=== PATIENT | female | born 1965 | race Caucasian/White ===

== ENCOUNTER → 2016-09-14 | Outpatient (CLI) | payer OTHER ==
[~2016-09-14] MED LIST: AMOX875T PO; FLUC150T PO; MBXC PO; MULTCAP42 PO; OXY/15 PO; OXYC1TAB PO; OXYC1TAB3 PO
--- NOTE | 2016-09-14 10:37 | DIAGNOSTIC IMAGING REPORT ---
TWO VIEW CHEST CLINICAL HISTORY: Preoperative examination. FINDINGS: PA and lateral chest radiographs are compared to study dated 06/17/2016. The cardiomediastinal silhouette is unremarkable. The lungs and pleural spaces are clear. There is no pneumothorax. The bony thorax appears intact. IMPRESSION: No active disease in the chest. Electronically signed by: Jay Humphries M.D. 09/14/2016 10:36 AM Dictated Date/Time: 09/14/2016 10:35 AM
== END | disposition home or self-care (01) ==
LOC: C.CPL 10:15
PROVIDERS: ATTEND General Practice
DX: Z01.810 Encounter for preprocedural cardiovascular examination (principal)

== ENCOUNTER → 2016-10-08 | Outpatient (CLI) | payer OTHER ==
--- NOTE | 2016-10-08 12:33 | DIAGNOSTIC IMAGING REPORT ---
CERVICAL SPINE 2 OR 3 VIEWS CLINICAL HISTORY: Postoperative examination. COMPARISON STUDY: MRI the cervical spine dated 06/26/2015 FINDINGS: There are postsurgical changes of anterior discectomies and interbody fusions at the C3-4, C4-5, and C5-C6 levels. Interbody implant/spacers are present at these 3 levels. The C3 screws abut the C3-4 interbody implant/spacer. There is straightening of normal cervical lordosis. There is prevertebral soft tissue edema. IMPRESSION: Postsurgical changes as described above. Prevertebral soft tissue edema. Electronically signed by: Adiel Candelaria M.D. 10/08/2016 12:31 PM Dictated Date/Time: 10/08/2016 12:29 PM
== END | disposition home or self-care (01) ==
LOC: C.RAD 12:02
PROVIDERS: ATTEND Neurological Surgery
DX: Z48.89 Encounter for other specified surgical aftercare (principal)

== ENCOUNTER → 2016-11-05 | Outpatient (CLI) | payer OTHER ==
--- NOTE | 2016-11-05 09:04 | DIAGNOSTIC IMAGING REPORT ---
CERVICAL SPINE 2 OR 3 VIEWS CLINICAL HISTORY: POST OP COMPARISON STUDY: 10/08/2016 FINDINGS: There is decreased prevertebral soft tissue swelling. There are postsurgical changes of anterior discectomies and interbody fusions the C3-4, C4-5, and C5-6 levels. Interbody spacers/implants are again present at these 3 levels. There is an anterior metallic plate with screws at the C3 C4 C5 and C6 levels. IMPRESSION: Postsurgical changes as described above. Decreasing prevertebral soft tissue edema Electronically signed by: Adiel Candelaria M.D. 11/05/2016 9:02 AM Dictated Date/Time: 11/05/2016 9:01 AM
== END | disposition home or self-care (01) ==
LOC: C.RAD 08:21
PROVIDERS: ATTEND Neurological Surgery
DX: Z48.89 Encounter for other specified surgical aftercare (principal); R60.0 Localized edema

== ENCOUNTER → 2016-12-30 | Outpatient (CLI) | payer OTHER ==
[~2016-12-30] MED LIST changes: -MBXC PO
--- NOTE | 2016-12-30 14:39 | DIAGNOSTIC IMAGING REPORT ---
AP AND LATERAL VIEWS OF CERVICAL SPINE 2 VIEWS CLINICAL HISTORY: ENCOUNTER FOR OTHER SPECIFIED SURGICAL AFTERCARE,Z48.89 COMPARISON STUDY: 11/05/2016 FINDINGS: There are postsurgical changes of anterior discectomies with interbody bone plugs at the C3-4, C4-5, and C5-6 levels. There is anterior metallic plate with screws extending from C3 through the C6 level. No acute fractures or subluxations are visualized. There is borderline prevertebral soft tissue widening IMPRESSION: Postsurgical changes the C3-C6 levels. Electronically signed by: Adiel Candelaria M.D. 12/30/2016 2:37 PM Dictated Date/Time: 12/30/2016 2:36 PM
== END | disposition home or self-care (01) ==
LOC: C.RAD 13:47
PROVIDERS: ATTEND Neurological Surgery
DX: Z48.89 Encounter for other specified surgical aftercare (principal)

== ENCOUNTER → 2017-03-04 | Outpatient (CLI) | payer OTHER ==
[2017-03-04 12:40] LABS: BASO % 0.5 %; BASO ABS # 0.05 K/uL (0-0.2); COMPLETE YES; EOS % 1.6 %; HEMATOCRIT 42.9 % (37-47); IG% 0.3 %; LYMPH % 19.1 %; MEAN CORPUSCULAR HEMOGLOBIN 27.3 pg (25-34); MEAN CORPUSCULAR HGB CONC 32.9 g/dl (32-36); MEAN PLATELET VOLUME 10.7 fL (7.4-10.4); MONO % 4.7 %; NEUT % 73.8 %; PLATELET COUNT 385 K/uL (130-400); RED BLOOD COUNT 5.17 M/uL (4.2-5.4); WHITE BLOOD COUNT 9.97 K/uL (4.8-10.8)
[2017-03-04 12:51] LABS: ALT/SGPT 25 U/L (12-78); AST/SGOT 16 U/L (15-37); BLOOD UREA NITROGEN 8 mg/dl (7-18); BUN/CREATININE RATIO 13.1 (10-20); CALCIUM 9.5 mg/dl (8.5-10.1); CARBON DIOXIDE 30 mmol/L (21-32); CHLORIDE 107 mmol/L (98-107); CREATININE 0.62 mg/dl (0.60-1.20); GLUCOSE 161 mg/dl (70-99); MAGNESIUM 2.2 mg/dl (1.8-2.4); POTASSIUM 4.2 mmol/L (3.5-5.1); SODIUM 140 mmol/L (136-145)
[2017-03-04 13:03] LABS: ALB/GLOB RATIO 1.2 (0.9-2); ALKALINE PHOSPHATASE 104 U/L (45-117); THYROID STIMULATING HORMONE 0.505 uIu/ml (0.300-4.500)
== END | disposition home or self-care (01) ==
LOC: C.LABSPEC 12:23
PROVIDERS: ATTEND General Practice
DX: E78.5 Hyperlipidemia, unspecified (principal); D64.9 Anemia, unspecified; N28.9 Disorder of kidney and ureter, unspecified; E03.9 Hypothyroidism, unspecified; E53.8 Deficiency of other specified B group vitamins; E55.9 Vitamin D deficiency, unspecified; E83.42 Hypomagnesemia

== ENCOUNTER 2017-04-06 15:52 | Emergency (ER) | payer OTHER ==
[~2017-04-06] VITALS: Ht 175.3 cm; Wt 81.5 kg
[~2017-04-06 15:52] MED LIST changes: -AMOX875T PO; -FLUC150T PO; -OXYC1TAB3 PO
[2017-04-06 15:55] VITALS: TEMP 36.6; Ht 175.3 cm; Wt 81.5 kg
[2017-04-06] MEDS ORDERED: PIPERACILLIN/TAZOBACTAM 4.5 GM/100ML D5W IV STA (16:04)
--- NOTE | 2017-04-06 16:14 | EMERGENCY ROOM VISIT NOTE ---
History Report prepared by Kaitlin: Roger Perdomo Under the Supervision of: Dr. Jay Monk M.D. First contact with patient: 16:00 Chief Complaint: ALLERGIC REACTION Stated Complaint: FEET, ANKLES, WHOLE BODY SWELLED, RASH, HIVES History of Present Illness The patient is a 52 year old female who presents to the Emergency Room with complaints of a persistent allergic reaction that started earlier today. She says that she is having a typical allergic reaction to when the humidity outside goes over 40%. The patient states that she is swollen all over, but her right leg is worse than everywhere else. She adds that her right foot is peeling. She states that her knees are sore. The patient says that she does not take any medications for the allergic reactions, and it usually runs its course. She does note that Lasix does not reduce the swelling. The patient says that she has had ulcers in her mouth the past few days, but she had a recent viral illness. The patient says that she has had burning urination with decreased frequency. She denies any fevers today or any shortness of breath. The patient notes a history of cellulitis, and she had a heart murmur when she was . The patient says that she has no history of blood clots, and she is not on a blood thinner. The patient states that she has not been on antibiotics recently. She adds that she had stabbing left lower back pain yesterday. Source of History: patient Onset: Earlier today Position: other (global - allergic reaction) Quality: other (swelling everywhere, worse on right leg) Timing: other (persistent) Associated Symptoms: + SOB, + urinary symptoms (burning with decreased frequency) Note: Associated symptoms: Sore knees. Right foot peeling. Review of Systems See HPI for pertinent positives & negatives. A total of 10 systems reviewed and were otherwise negative. Past Medical & Surgical Medical Problems: (1) Chronic back pain (2) Migraines (3) Right hand weakness (4) Scoliosis Family History Cancer FH: HTN (hypertension) Heart disease Lung disease Stroke Social History Smoking Status: Current Every Day Smoker Alcohol Use: occasionally Drug Use: none Marital Status: single Occupation Status: disabled Current/Historical Medications Scheduled Amoxicillin & Pot Clavulanate (Augmentin 875-125 mg), 875 MG PO BID Fluconazole (Diflucan), 150 MG PO DIRECTED Oxycodone Ir (Roxicodone Ir), 5 MG PO Q8 Scheduled PRN Oxycodone Ir (Roxicodone Ir), 30 MG PO Q6H PRN for Breakthough Pain Allergies Coded Allergies: No Known Allergies (Verified , 06/17/16) Physical Exam Vital Signs Date Time Temp Pulse Resp B/P (MAP) Pulse Ox O2 Delivery O2 Flow Rate FiO2 04/06/17 18:54 63 18 121/77 94 04/06/17 16:50 94 Room Air 04/06/17 15:55 36.6 96 18 113/69 95 Room Air Physical Exam GENERAL: Patient is in no acute distress. HEENT: No acute trauma, normocephalic atraumatic, mucous membranes moist, no nasal congestion, no scleral icterus. No throat erythema or obvious mouth ulcers. NECK: No stridor, no adenopathy, no meningismus, trachea is midline. LUNGS: Clear to auscultation bilaterally, no wheeze, no rhonchi, breath sounds equal. HEART: 2/6 systolic murmur with a regular rate and rhythm. ABDOMEN: Soft, nontender, bowel sounds positive, no hernias, no peritonitis. EXTREMITIES: Edema to both lower extremities, worse on right side. There is right foot and medial leg erythema with warmth consistent with cellulitis. No drainage. NEUROLOGIC: Oriented x 3, no acute motor or sensory deficits, no focal weakness. SKIN: No rash, no jaundice, no diaphoresis. Medical Decision & Procedures ER Provider Diagnostic Interpretation: Radiology results as stated below per my review and radiologist interpretation: ULTRASOUND VENOUS DOPPLER LWR EXT BILA CLINICAL HISTORY: Leg swelling COMPARISON STUDY: No previous studies for comparison. FINDINGS: Real-time and color flow Doppler imaging were performed. Flow was seen within the femoral, popliteal and calf veins with no intraluminal thrombus demonstrated. The saphenous vein is patent. There are mildly prominent bilateral inguinal lymph nodes, likely reactive. IMPRESSION: No evidence of lower extremity DVT. Electronically signed by: Adiel Candelaria M.D. 04/06/2017 5:46 PM Dictated Date/Time: 04/06/2017 5:46 PM CHEST ONE VIEW PORTABLE CLINICAL HISTORY: Altered mental status. Weakness. COMPARISON STUDY: 09/06/2016 FINDINGS: The cardiac and mediastinal contours are normal. There is no evidence of focal pulmonary consolidation. There is no evidence of failure. No pleural effusions are visualized.[ IMPRESSION: No active disease in the chest. Electronically signed by: Adiel Candelaria M.D. 04/06/2017 5:09 PM Dictated Date/Time: 04/06/2017 5:09 PM Laboratory Results 04/06/17 16:36 Red Blood Count 4.92, Mean Corpuscular Volume 84.8, Mean Corpuscular Hemoglobin 26.6, Mean Corpuscular Hemoglobin Concent 31.4, Mean Platelet Volume 9.8, Neutrophils (%) (Auto) 56.0, Lymphocytes (%) (Auto) 29.9, Monocytes (%) (Auto) 8.4, Eosinophils (%) (Auto) 5.2, Basophils (%) (Auto) 0.4, Neutrophils # (Auto) 5.29, Lymphocytes # (Auto) 2.82, Monocytes # (Auto) 0.79, Eosinophils # (Auto) 0.49, Basophils # (Auto) 0.04 04/06/17 16:36 Test 04/06/17 16:36 White Blood Count 9.44 K/uL (4.8-10.8) Red Blood Count 4.92 M/uL (4.2-5.4) Hemoglobin 13.1 g/dL (12.0-16.0) Hematocrit 41.7 % (37-47) Mean Corpuscular Volume 84.8 fL (80-100) Mean Corpuscular Hemoglobin 26.6 pg (25-34) Mean Corpuscular Hemoglobin Concent 31.4 g/dl (32-36) Platelet Count 350 K/uL (130-400) Mean Platelet Volume 9.8 fL (7.4-10.4) Neutrophils (%) (Auto) 56.0 % Lymphocytes (%) (Auto) 29.9 % Monocytes (%) (Auto) 8.4 % Eosinophils (%) (Auto) 5.2 % Basophils (%) (Auto) 0.4 % Neutrophils # (Auto) 5.29 K/uL (1.4-6.5) Lymphocytes # (Auto) 2.82 K/uL (1.2-3.4) Monocytes # (Auto) 0.79 K/uL (0.11-0.59) Eosinophils # (Auto) 0.49 K/uL (0-0.5) Basophils # (Auto) 0.04 K/uL (0-0.2) RDW Standard Deviation 47.9 fL (36.4-46.3) RDW Coefficient of Variation 15.7 % (11.5-14.5) Immature Granulocyte % (Auto) 0.1 % Immature Granulocyte # (Auto) 0.01 K/uL (0.00-0.02) Prothrombin Time 10.2 SECONDS (9.0-12.0) Prothromb Time International Ratio 1.0 (0.9-1.1) Activated Partial Thromboplast Time 28.5 SECONDS (21.0-31.0) Partial Thromboplastin Ratio 1.1 Anion Gap 5.0 mmol/L (3-11) Est Creatinine Clear Calc Drug Dose 81.6 ml/min Estimated GFR () 84.0 Estimated GFR (Non- 72.5 BUN/Creatinine Ratio 11.6 (10-20) Calcium Level 9.9 mg/dl (8.5-10.1) Total Bilirubin 0.3 mg/dl (0.2-1) Aspartate Amino Transf (AST/SGOT) 23 U/L (15-37) Alanine Aminotransferase (ALT/SGPT) 32 U/L (12-78) Alkaline Phosphatase 92 U/L (45-117) Troponin I < 0.015 ng/ml (0-0.045) Total Protein 6.7 gm/dl (6.4-8.2) Albumin 3.5 gm/dl (3.4-5.0) Globulin 3.2 gm/dl (2.5-4.0) Albumin/Globulin Ratio 1.1 (0.9-2) Thyroid Stimulating Hormone (TSH) 0.717 uIu/ml (0.300-4.500) Laboratory results reviewed by me. Medications Administered Medications (Trade) Dose Ordered Sig/Billy Route Start Time Stop Time Status Last Admin Dose Admin Piperacillin Sod/ Tazobactam Sod (Zosyn Iv) 4.5 gm NOW STAT IV 04/06/17 16:04 04/06/17 16:09 DC 04/06/17 16:47 4.5 GM ECG Indication: SOB/dyspnea Rate (beats per minute): 60 Rhythm: normal sinus Findings: no ectopy, other (nonspecific ST change) Change: no significant change (compared to 09/14/16) ED Course 160: The patient was evaluated in room A4B. A complete history and physical exam was performed. 160: Ordered Zosyn IV 4.5 gm IV. 1812: Reevaluated the patient and she is resting comfortably. Discussed results and discharge instructions: she verbalized understanding and agreement. The patient is ready for discharge. Medical Decision Differential diagnosis includes but is not limited to DVT, cellulitis, venous insufficiency, CHF, electrolyte imbalance, anemia, UTI, thyroid disorder. There is no leukocytosis or concerning anemia. No significant electrolyte abnormality, kidney failure or hepatitis. The patient appears to be in a euthyroid state. Bilateral lower extremity ultrasound does not show DVT. Chest x-ray does not show CHF or pneumonia. EKG shows a sinus rhythm, no acute ischemia. Cardiac enzyme testing 1 is not consistent with acute cardiac injury. Blood cultures are pending. On exam, the patient was not febrile or toxic. She appeared to have a right lower extremity cellulitis. She was given IV Zosyn. She is stable and is being discharged on Augmentin twice a day for 10 days. Elevation of the leg was suggested. If worsening, she can return for reassessment. She will follow with her doctor in a few days. Medication Reconcilliation Current Medication List: was personally reviewed by me Blood Pressure Screening Patient's blood pressure: Normal blood pressure Impression Primary Impression: Cellulitis of right leg Additional Impression: Pedal edema Scribe Attestation The scribe's documentation has been prepared under my direction and personally reviewed by me in its entirety. I confirm that the note above accurately reflects all work, treatment, procedures, and medical decision making performed by me. Departure Information Dispostion Home / Self-Care Prescriptions Fluconazole (DIFLUCAN) 150 Mg Tab 150 MG PO DIRECTED, #2 TAB Prov: Jay Monk M.D. 04/06/17 Amoxicillin & Pot Clavulanate (Augmentin 875-125 mg) 1 Tab Tab 875 MG PO BID for 10 Days, #20 TAB Prov: Jay Monk M.D. 04/06/17 Referrals Carie Keane D.O. (PCP) Patient Instructions My [facility] Additional Instructions try to keep the legs elevated augmentin 2x per day for 10 days see nettie mosquera this week or early next for a recheck return for worsening symptoms or if not improving lab testing today was all ok Problem Qualifiers
[2017-04-06] MEDS ORDERED: OXYC1TAB3 PO (16:18)
[2017-04-06 16:50] VITALS: O2SAT 94
[2017-04-06 17:02] LABS: BASO % 0.4 %; BASO ABS # 0.04 K/uL (0-0.2); COMPLETE YES; EOS % 5.2 %; HEMATOCRIT 41.7 % (37-47); IG% 0.1 %; LYMPH % 29.9 %; LYMPH ABS # 2.82 K/uL (1.2-3.4); MEAN CELL VOLUME 84.8 fL (80-100); MEAN CORPUSCULAR HEMOGLOBIN 26.6 pg (25-34); MEAN CORPUSCULAR HGB CONC 31.4 g/dl (32-36); MEAN PLATELET VOLUME 9.8 fL (7.4-10.4); MONO % 8.4 %; PLATELET COUNT 350 K/uL (130-400); RED BLOOD COUNT 4.92 M/uL (4.2-5.4); WHITE BLOOD COUNT 9.44 K/uL (4.8-10.8)
--- NOTE | 2017-04-06 17:10 | DIAGNOSTIC IMAGING REPORT ---
CHEST ONE VIEW PORTABLE CLINICAL HISTORY: Altered mental status. Weakness. COMPARISON STUDY: 09/06/2016 FINDINGS: The cardiac and mediastinal contours are normal. There is no evidence of focal pulmonary consolidation. There is no evidence of failure. No pleural effusions are visualized.[ IMPRESSION: No active disease in the chest. Electronically signed by: Adiel Candelaria M.D. 04/06/2017 5:09 PM Dictated Date/Time: 04/06/2017 5:09 PM
[2017-04-06 17:20] LABS: ALT/SGPT 32 U/L (12-78); BLOOD UREA NITROGEN 10 mg/dl (7-18); BUN/CREATININE RATIO 11.6 (10-20); CALCIUM 9.9 mg/dl (8.5-10.1); CARBON DIOXIDE 30 mmol/L (21-32); CHLORIDE 107 mmol/L (98-107); GLUCOSE 116 mg/dl (70-99); POTASSIUM 4.1 mmol/L (3.5-5.1); SODIUM 142 mmol/L (136-145)
[2017-04-06 17:28] LABS: PARTIAL THROMBOPLASTIN RATIO 1.1; PROTHROMBIN TIME (PATIENT) 10.2 SECONDS (9.0-12.0)
[2017-04-06 17:30] LABS: ALB/GLOB RATIO 1.1 (0.9-2); ALKALINE PHOSPHATASE 92 U/L (45-117); AST/SGOT 23 U/L (15-37); THYROID STIMULATING HORMONE 0.717 uIu/ml (0.300-4.500)
--- NOTE | 2017-04-06 17:48 | DIAGNOSTIC IMAGING REPORT ---
ULTRASOUND VENOUS DOPPLER LWR EXT BILA CLINICAL HISTORY: Leg swelling COMPARISON STUDY: No previous studies for comparison. FINDINGS: Real-time and color flow Doppler imaging were performed. Flow was seen within the femoral, popliteal and calf veins with no intraluminal thrombus demonstrated. The saphenous vein is patent. There are mildly prominent bilateral inguinal lymph nodes, likely reactive. IMPRESSION: No evidence of lower extremity DVT. Electronically signed by: Adiel Candelaria M.D. 04/06/2017 5:46 PM Dictated Date/Time: 04/06/2017 5:46 PM
[2017-04-06] MEDS ORDERED: AMOX875T PO (18:17)
[2017-04-06] MEDS ORDERED: FLUC150T PO (18:19)
[2017-04-06 18:54] VITALS: BP 121/77; PULSE 63; O2SAT 94
== END 2017-04-06 18:54 | disposition home or self-care (01) ==
LOC: C.EDB 15:53 → C.EDA 18:54
DX: L03.115 Cellulitis of right lower limb (principal); R60.0 Localized edema; M54.9 Dorsalgia, unspecified; G89.29 Other chronic pain; F17.200 Nicotine dependence, unspecified, uncomplicated; M41.9 Scoliosis, unspecified; M06.332 Rheumatoid nodule, left wrist; Z82.49 Family history of ischemic heart disease and other diseases of the circulatory system; Z82.3 Family history of stroke; Z48.89 Encounter for other specified surgical aftercare

== ENCOUNTER → 2017-04-06 | Outpatient (CLI) | payer OTHER ==
--- NOTE | 2017-04-06 16:05 | DIAGNOSTIC IMAGING REPORT ---
CERVICAL SPINE 2 OR 3 VIEWS CLINICAL HISTORY: Status post cervical spine surgery. COMPARISON STUDY: Cervical spine radiographs December 30, 2013. FINDINGS: Note is again made of postoperative findings consistent with C3-C4 and C4-C5 and C5-C6 discectomies with interbody bone plug placement. There are 2 screws within the C3, C4, C5 and C6 vertebral bodies with anterior plate. Hardware is intact. Postoperative appearance is unchanged. No fracture is identified. Slight reversal of the normal cervical lordosis is noted. IMPRESSION: 1. Stable postoperative findings consistent with C3-C6 anterior discectomy and fusion. 2. No cervical spine fracture. Electronically signed by: Al Murray M.D. 04/06/2017 4:04 PM Dictated Date/Time: 04/06/2017 3:04 PM
== END | disposition home or self-care (01) ==
LOC: C.RAD 14:02
PROVIDERS: ATTEND Neurological Surgery
DX: Z48.89 Encounter for other specified surgical aftercare (principal)

== ENCOUNTER → 2017-04-06 | Outpatient (CLI) | payer OTHER ==
--- NOTE | 2017-04-06 15:06 | DIAGNOSTIC IMAGING REPORT ---
LEFT WRIST MIN 3 VIEWS ROUTINE CLINICAL HISTORY: MEDICAL NODULE COMPARISON: None. DISCUSSION: The bones and joint spaces appear intact. There is no evidence of fracture, dislocation or bony disease. There is no evidence for soft tissue swelling. IMPRESSION: Negative study. The above report was generated using voice recognition software. It may contain grammatical, syntax or spelling errors. Electronically signed by: Josh Gallego M.D. 04/06/2017 3:05 PM Dictated Date/Time: 04/06/2017 3:05 PM
== END | disposition home or self-care (01) ==
LOC: C.RAD 13:58
PROVIDERS: ATTEND General Practice
DX: M06.332 Rheumatoid nodule, left wrist (principal)

== ENCOUNTER 2017-05-30 03:07 | Emergency (ER) | payer OTHER ==
[~2017-05-30] VITALS: Ht 175.3 cm; Wt 83.4 kg
[~2017-05-30 03:07] MED LIST changes: -MULTCAP42 PO; -OXY/15 PO; +OXYC1TAB3 PO
[2017-05-30 03:09] VITALS: TEMP 36.6; Ht 175.3 cm; Wt 83.4 kg
[2017-05-30 04:53] VITALS: BP 136/77; PULSE 83; O2SAT 95
--- NOTE | 2017-05-30 07:24 | DIAGNOSTIC IMAGING REPORT ---
L WRIST MIN 3 VIEWS ROUTINE CLINICAL HISTORY: left wrist pain COMPARISON: 04/06/2017 DISCUSSION: No acute fractures or dislocations are visualized. Mild degenerative changes are evident. IMPRESSION: Mild degenerative change. No fractures are visualized. Electronically signed by: Adiel Candelaria M.D. 05/30/2017 7:22 AM Dictated Date/Time: 05/30/2017 7:21 AM
--- NOTE | 2017-05-31 00:23 | EMERGENCY ROOM VISIT NOTE ---
ED Visit Note First contact with patient: 03:15 CHIEF COMPLAINT: Wrist injury HISTORY OF PRESENT ILLNESS: This 52-year-old female patient presents to the emergency department complaining of pain in the left wrist for the past 3 or 4 weeks. She does not have distinct injury or trauma. She does have an orthopedist in [place] that she follows with, but has not seen them for this. The patient is able to move their wrist. The patient states the pain is dull and 4/10. No laceration, no weakness. No numbness or tingling. The patient denies any other injury. The patient is able to move their fingers and elbow without difficulty. The patient has not had a previous fracture to this wrist. The patient has taken her chronic oxycodone for the pain. REVIEW OF SYSTEMS: A 6 system review of systems was performed with positives and pertinent negatives in the HPI. ALLERGIES: No allergies MEDICATIONS: See EMR PMH: See EMR SOCIAL HISTORY: Lives locally PHYSICAL EXAM: Vital Signs: Reviewed Nurse's notes, vital signs stable. GENERAL : White female, in no acute distress, but appears to be in pain, well-developed , well-neurished. NEURO: Alert and oriented to person place and time. Normal sensation to light and sharp touch. MUSCULOSKELETAL: There is not deformity of the left wrist. There is tenderness and edema over distal radius. There is no snuff box tenderness. Range of motion is not limited. There is no tenderness of the elbow, hand or fingers. Associate Director Financial Aid strength 5/5. Radial pulse 2+. SKIN: Normal and intact. The hand is warm and well perfused with capillary refill less than 2 seconds. L WRIST MIN 3 VIEWS ROUTINE CLINICAL HISTORY: left wrist pain COMPARISON: 04/06/2017 DISCUSSION: No acute fractures or dislocations are visualized. Mild degenerative changes are evident. IMPRESSION: Mild degenerative change. No fractures are visualized. EMERGENCY DEPARTMENT COURSE: Physical exam and history were performed. Nursing notes and EMR were reviewed. The patient has left wrist pain for the past several weeks. She does not recall distinct injury or trauma. There is some tenderness over the distal radius and x-ray was obtained. X-ray does not show acute fracture or dislocation. Patient was placed in a wrist splint. She was given information for orthopedics. She evidently takes chronic oxycodone and may continue this for pain. She was otherwise invited back to the ER with any new, worsening, or concerning symptoms. Problem List Medical Problems: (1) Chronic back pain Status: Chronic (2) Migraines Status: Chronic (3) Right hand weakness Status: Resolved (4) Scoliosis Status: Chronic Current/Historical Medications Scheduled PRN Oxycodone Ir (Roxicodone Ir), 30 MG PO Q6H PRN for Breakthough Pain Oxycodone Ir (Roxicodone Ir), 5 MG PO Q8 PRN for Pain Allergies Coded Allergies: No Known Allergies (Verified , 05/30/17) Vital Signs Date Time Temp Pulse Resp B/P (MAP) Pulse Ox O2 Delivery O2 Flow Rate FiO2 05/30/17 04:53 83 18 136/77 95 05/30/17 03:09 36.6 82 20 126/80 97 Room Air Departure Information Impression Primary Impression: Wrist pain, left Dispostion Home / Self-Care Condition GOOD Referrals Carie Keane D.O. (PCP) Pancho Rasmussen D.O. Forms HOME CARE DOCUMENTATION FORM, IMPORTANT VISIT INFORMATION Patient Instructions My [facility] Additional Instructions You were seen and evaluated today on an emergency basis only. This is not a substitute for, or an effort to provide, complete comprehensive medical care. It is not possible to recognize and treat all injuries or illnesses in a single emergency department visit. For this reason it is recommended that you followup with Orthopedics, Dr Rasmussen's office, with a ongoing or persistent symptoms. Wear your brace for comfort. You are welcome to return to the emergency department anytime with new, worsening, or concerning symptoms.
== END 2017-05-30 04:54 | disposition home or self-care (01) ==
LOC: C.EDB 03:08
DX: M25.532 Pain in left wrist (principal); M54.9 Dorsalgia, unspecified; G89.29 Other chronic pain

== ENCOUNTER 2018-03-06 13:56 | Emergency (ER) | payer OTHER ==
[~2018-03-06] VITALS: Ht 175.3 cm; Wt 84.3 kg
[~2018-03-06 13:56] MED LIST changes: +OXYC-90 PO; -OXYC1TAB3 PO
[2018-03-06 14:05] VITALS: TEMP 36.7; Ht 175.3 cm; Wt 84.3 kg
--- NOTE | 2018-03-06 14:40 | EMERGENCY ROOM VISIT NOTE ---
History First contact with patient: 14:15 Chief Complaint: THROAT PAIN/INJURY Stated Complaint: THRUSH IN MOUTH AND LOOKS LIKE STREP THROAT,RASH History of Present Illness The patient is a 52 year old female who presents to the Emergency Room with complaints of 8/10 sore throat. The patient also notes the following associated symptoms, rash over the extremities and trunk, fevers, chills, headache, diaphoresis, lymphadenopathy, difficulty urinating, arthralgias and general malaise . This started about a month ago for the throat and one day for the rash and is worsening. The patient has tried nystatin from her PCP for relieving factors. The nystatin has not helped. She has chronic neck and back pain. Despite using her prescribed oxy 30mg she still notes the pain. No sick contacts or exposure. Pt denies LOC,visual changes, new neck pain, chest pain, breathing difficulties, nausea, vomiting, abdominal pain, new back pain, melena , hematochezia, numbness, weakness, or other complaints. Review of Systems See HPI for pertinent positives and negatives. A total of ten systems were reviewed and were otherwise negative. Past Medical/Surgical History Medical Problems: (1) Carpal tunnel syndrome (2) Chronic back pain (3) Migraines (4) Right hand weakness (5) Scoliosis (6) Spinal stenosis in cervical region Surgical Problems: (1) S/P section Family History Cancer FH: HTN (hypertension) Heart disease Lung disease Stroke Social History Smoking Status: Current Every Day Smoker Alcohol Use: occasionally Drug Use: none Marital Status: single Occupation Status: disabled Current/Historical Medications Scheduled Cephalexin Monohydrate (Keflex), 500 MG PO QID Scheduled PRN Oxycodone Ir (Roxicodone Ir), 30 MG PO Q6H PRN for Pain Physical Exam Vital Signs Date Time Temp Pulse Resp B/P (MAP) Pulse Ox O2 Delivery O2 Flow Rate FiO2 03/06/18 18:03 71 16 151/103 97 03/06/18 16:39 73 16 147/86 99 Room Air 03/06/18 15:35 85 18 145/79 96 Room Air 03/06/18 14:16 Room Air 03/06/18 14:05 36.7 88 18 96 Room Air Physical Exam GENERAL: Awake, alert, uncomfortable appearing, in no distress HENT: Normocephalic, atraumatic. Oropharynx revealed minimal erythema but no hypertrophy, uvula displacement, ulcerations or other abnormalities. EYES: Normal conjunctiva. Sclera non-icteric. NECK: Supple. No nuchal rigidity. FROM. No masses. No adenopathy RESPIRATORY: Clear to auscultation. No wheezes. No rales. Normal respiratory effort. CARDIAC: Normal rate. Normal rhythm. No murmurs. No rubs. Extremities warm and well perfused. Pulses equal. No JVD. GI: Soft, non-distended. No tenderness to palpation. No rebound or guarding. No masses. RECTAL: Deferred. MUSCULOSKELETAL: Atraumatic. Chest examination reveals no tenderness. The back is symmetrical on inspection without obvious abnormality. There is no CVA tenderness to palpation. No joint edema. LOWER EXTREMITIES: Calves are equal size bilaterally and non-tender. No edema. No discoloration. NEURO: Normal sensorium. No sensory or motor deficits noted. SKIN: Petechiae noted on the right hand (pt states just noticed since having BP taken and cuff really squeezed tight). Scattered secondary excoriations on the lower legs. No other rash or jaundice noted. Medical Decision & Procedures Laboratory Results 03/06/18 14:50 Red Blood Count 4.77, Mean Corpuscular Volume 88.5, Mean Corpuscular Hemoglobin 29.8, Mean Corpuscular Hemoglobin Concent 33.6, Mean Platelet Volume 9.7, Neutrophils (%) (Auto) 57.3, Lymphocytes (%) (Auto) 23.4, Monocytes (%) (Auto) 8.9, Eosinophils (%) (Auto) 9.4, Basophils (%) (Auto) 0.7, Neutrophils # (Auto) 5.84, Lymphocytes # (Auto) 2.39, Monocytes # (Auto) 0.91, Eosinophils # (Auto) 0.96, Basophils # (Auto) 0.07 03/06/18 14:50 Test 03/06/18 14:50 03/06/18 16:45 White Blood Count 10.20 K/uL (4.8-10.8) Red Blood Count 4.77 M/uL (4.2-5.4) Hemoglobin 14.2 g/dL (12.0-16.0) Hematocrit 42.2 % (37-47) Mean Corpuscular Volume 88.5 fL (80-100) Mean Corpuscular Hemoglobin 29.8 pg (25-34) Mean Corpuscular Hemoglobin Concent 33.6 g/dl (32-36) Platelet Count 307 K/uL (130-400) Mean Platelet Volume 9.7 fL (7.4-10.4) Neutrophils (%) (Auto) 57.3 % Lymphocytes (%) (Auto) 23.4 % Monocytes (%) (Auto) 8.9 % Eosinophils (%) (Auto) 9.4 % Basophils (%) (Auto) 0.7 % Neutrophils # (Auto) 5.84 K/uL (1.4-6.5) Lymphocytes # (Auto) 2.39 K/uL (1.2-3.4) Monocytes # (Auto) 0.91 K/uL (0.11-0.59) Eosinophils # (Auto) 0.96 K/uL (0-0.5) Basophils # (Auto) 0.07 K/uL (0-0.2) RDW Standard Deviation 43.5 fL (36.4-46.3) RDW Coefficient of Variation 13.4 % (11.5-14.5) Immature Granulocyte % (Auto) 0.3 % Immature Granulocyte # (Auto) 0.03 K/uL (0.00-0.02) Anion Gap 5.0 mmol/L (3-11) Est Creatinine Clear Calc Drug Dose 88.8 ml/min Estimated GFR () 91.3 Estimated GFR (Non- 78.8 BUN/Creatinine Ratio 13.8 (10-20) Calcium Level 9.2 mg/dl (8.5-10.1) Magnesium Level 2.2 mg/dl (1.8-2.4) Total Bilirubin 0.4 mg/dl (0.2-1) Direct Bilirubin 0.1 mg/dl (0-0.2) Aspartate Amino Transf (AST/SGOT) 18 U/L (15-37) Alanine Aminotransferase (ALT/SGPT) 27 U/L (12-78) Alkaline Phosphatase 100 U/L (45-117) C-Reactive Protein 2.13 mg/dl (0-0.29) Total Protein 6.6 gm/dl (6.4-8.2) Albumin 3.4 gm/dl (3.4-5.0) Thyroid Stimulating Hormone (TSH) 0.658 uIu/ml (0.300-4.500) Anti-Streptolysin O Antibody Screen NEG IU/ml (<200 IU) Urine Color YELLOW Urine Appearance CLEAR (CLEAR) Urine pH 5.0 (4.5-7.5) Urine Specific [place] 1.018 (1.000-1.030) Urine Protein NEG (NEG) Urine Glucose (UA) NEG (NEG) Urine Ketones NEG (NEG) Urine Occult Blood 2+ (NEG) Urine Nitrite NEG (NEG) Urine Bilirubin NEG (NEG) Urine Urobilinogen NEG (NEG) Urine Leukocyte Esterase SMALL (NEG) Urine WBC (Auto) 10-30 /hpf (0-5) Urine RBC (Auto) 5-10 /hpf (0-4) Urine Hyaline Casts (Auto) 5-10 /lpf (0-5) Urine Epithelial Cells (Auto) >30 /lpf (0-5) Urine Bacteria (Auto) NEG (NEG) Urine Renal Epithelial Cells 0-5 /lpf (0-5) Urine Crystals CALCIUM OXALATE (NONE Medications Administered Medications (Trade) Dose Ordered Sig/Billy Route Start Time Stop Time Status Last Admin Dose Admin Cephalexin Monohydrate (Keflex 500MG Home Pack) 1 homepack NOW ONCE PO 03/06/18 18:00 03/06/18 18:02 DC 03/06/18 18:00 1 HOMEPACK Medical Decision Prior records/ancillary studies reviewed. Triage Nursing notes reviewed and agree them. The patient's history was concerning for sore throat and a rash. Patient also noted urinary symptoms. Differential diagnosis: Etiologies such as mononucleosis, streptococcal pharyngitis, peritonsillar abscess, viral syndrome, retropharyngeal abscess, tonsillitis, otitis, pneumonia, influenza, dermatitis, Thomas-Markell, scabies, UTI, as well as others were entertained. ER treatment provided: Keflex Monitoring and reassurance On reassessment the patient felt better. Diagnostics interpreted by me: The labs revealed an unremarkable CBC and chemistry panel. ASO titer negative. CRP minimally elevated. UTI found on urinalysis. Imaging studies: Deferred The patient had a benign oropharyngeal examination. I did do a formal throat culture that is pending at this time. I did discuss conservative management and holding off on any treatment for the throat based upon the results of the culture and the patient felt comfortable with this. She had no signs of Giovanni' s angina, retropharyngeal abscess, peritonsillar abscess. She has no respiratory compromise or distress. On further discussion with her she states that she has been exposing her hands and feet to a lot of mold closer helper at home such as bleach and [place]. I did recommend that she avoid this as it could be causing skin irritation in the soreness she is experiencing in her hands and feet. She does also note that she scratches a lot mainly at night and could be causing her secondary excoriations. There is no evidence of scabies, abscess, folliculitis, or cellulitis. She denies any significant itching during the day. Based upon her urinalysis and complaints she was started on Keflex. She will follow-up closely with her primary physician. She will contact the ER in 48 hours for culture results. If she worsens in any way she will be back. I gave my usual and customary discussion regarding this issue. By the evaluation outlined above other emergent etiologies such as those listed in the differential, as well as others, were deemed relatively unlikely. The patient was educated about the findings as listed above. All questions were answered and the patient was pleased with the treatment. Return instructions were outlined and the patient was discharged in stable condition. The patient was referred to her PCP for follow-up for a recheck of the current condition. Impression Primary Impression: Sore throat Additional Impressions: UTI (urinary tract infection) Contact dermatitis Departure Information Dispostion Home / Self-Care Condition GOOD Prescriptions Cephalexin Monohydrate (Keflex) 500 Mg Cap 500 MG PO QID, #16 CAP Prov: Eliu Barrientos MD 03/06/18 Referrals Carie Keane D.O. (PCP) Patient Instructions My [facility] Additional Instructions Cephalexin(Keflex) 500mg: Take one pill four times daily for 5 days for your infection. All antibiotics can cause diarrhea. If this occurs and you feel worse or it does not resolve in 1-2 days follow up with your doctor or return to the Emergency Department as this could be signs of serious underlying problems. Any medication can cause an allergic reaction, stop the pills immediately and return to the ER for rash, hives, breathing difficulties, or swelling. Continue current medications. Return to the ER for worsening rash, sore throat, difficulty swallowing, breathing difficulties, chest pain, headache, abdominal pain, vomiting, fevers, bloody stools, or as needed. Call back to the emergency department in 48 hours for throat culture results. The number is [phone]. Follow-up with your primary care physician in 2 to 3 days for a recheck of your current condition. Problem Qualifiers
[2018-03-06 14:58] LABS: BASO % 0.7 %; BASO ABS # 0.07 K/uL (0-0.2); EOS % 9.4 %; EOS ABS # 0.96 K/uL (0-0.5); HEMATOCRIT 42.2 % (37-47); HEMOGLOBIN 14.2 g/dL (12.0-16.0); IG# 0.03 K/uL (0.00-0.02); LYMPH % 23.4 %; LYMPH ABS # 2.39 K/uL (1.2-3.4); MEAN CELL VOLUME 88.5 fL (80-100); MEAN CORPUSCULAR HEMOGLOBIN 29.8 pg (25-34); MEAN CORPUSCULAR HGB CONC 33.6 g/dl (32-36); MEAN PLATELET VOLUME 9.7 fL (7.4-10.4); MONO % 8.9 %; MONO ABS # 0.91 K/uL (0.11-0.59); NEUT % 57.3 %; NEUT ABS # 5.84 K/uL (1.4-6.5); PLATELET COUNT 307 K/uL (130-400); RED CELL DISTRIBUTION WIDTH CV 13.4 % (11.5-14.5); RED CELL DISTRIBUTION WIDTH SD 43.5 fL (36.4-46.3)
[2018-03-06 15:26] LABS: ALBUMIN 3.4 gm/dl (3.4-5.0); CALCIUM 9.2 mg/dl (8.5-10.1); CREATININE 0.84 mg/dl (0.60-1.20); POTASSIUM 3.6 mmol/L (3.5-5.1); TOTAL PROTEIN 6.6 gm/dl (6.4-8.2)
[2018-03-06] MEDS ORDERED: CEPH500C PO (17:56)
[2018-03-06] MEDS ORDERED: CEPHALEXIN 500MG HOME PACK 1 EA BTL PO ONE (18:00)
[2018-03-06 18:03] VITALS: BP 151/103; PULSE 71; O2SAT 97
== END 2018-03-06 18:01 | disposition home or self-care (01) ==
LOC: C.EDB 13:59 → C.EDA 18:01
DX: R07.0 Pain in throat (principal); N39.0 Urinary tract infection, site not specified; L25.9 Unspecified contact dermatitis, unspecified cause; R51 Headache; F17.200 Nicotine dependence, unspecified, uncomplicated